=== PATIENT | male | born 1960 | race Caucasian/White ===

== ENCOUNTER 2022-05-07 22:49 | Emergency (ER) | payer OTHER | END 2022-05-08 00:17 | disposition home or self-care (01) | LOC: FER 22:49 | DX: M25.531 Pain in right wrist (principal); M25.551 Pain in right hip; F17.200 Nicotine dependence, unspecified, uncomplicated; V18.0XXA Pedal cycle driver injured in noncollision transport accident in nontraffic accident, initial encounter; Y92.410 Unspecified street and highway as the place of occurrence of the external cause | CPT/HCPCS: 73110; 73502 ==